=== PATIENT | female | born 1970 | race African-American/Black ===

== ENCOUNTER 2016-03-09 16:39 | Inpatient (IN) | payer MEDICARE, MEDICAID ==
[~2016-03-09] VITALS: Ht 182.9 cm; Wt 56.3 kg
[2016-03-09] MEDS ORDERED: BISACODYL 10 MG SUPP RECTAL PRN (16:50)
[2016-03-09] MEDS ORDERED: MAG HYDROX 30 ML UDC PO PRN (16:50)
[2016-03-09] MEDS ORDERED: SALINE FLUSH 10 ML FLUSH PRN (16:50)
[2016-03-09] MEDS ORDERED: ALU/MAG/SIM 30 ML UDC PO PRN (16:50)
[2016-03-09] MEDS ORDERED: ONDANSETRON 4 MG VIAL IV PRN (16:50)
[2016-03-09] MEDS ORDERED: ACETAMINOPHEN 325 MG TAB PO PRN (16:50)
[2016-03-09] MEDS ORDERED: BISACODYL EC 5 MG TAB PO PRN (16:50)
[2016-03-09] MEDS ORDERED: CYCLOBENZAPRINE 5 MG TAB PO PRN (16:55)
[2016-03-09] MEDS ORDERED: DEXTROSE 50% SYRINGE 50 ML IV PRN (16:55)
[2016-03-09] MEDS ORDERED: GLUCAGON 1 MG VIAL IM PRN (16:55)
[2016-03-09 19:36] VITALS: BP_SYST 100; BP_SYST 102; RESP 18; TEMP 97; BMI 16.4
[2016-03-09] MEDS: SALINE FLUSH 10 ML FLUSH SCH ×2 (20:00→23:28)
[2016-03-09] MEDS ORDERED: VALPROIC ACID 250 MG/5 ML UDC PO SCH (20:00)
[2016-03-09] MEDS ORDERED: **NOTE TO NURSE XX SCH (20:18)
[2016-03-09] MEDS: SODIUM CHLORIDE 0.9% 1,000 ML IV SCH (21:10)
[2016-03-09] MEDS: CEFEPIME 1,000 MG in SODIUM CHLORIDE 0.9% 100 ML IV SCH (21:10)
[2016-03-09] MEDS: SODIUM CHLORIDE 0.9% FLUSH BAG 500 ML IV SCH (21:12)
[2016-03-09 23:25] VITALS: BP_SYST 120; RESP 16; TEMP 97
[2016-03-10] MEDS ORDERED: ALU/MAG/SIM 30 ML UDC GTUBE PRN (00:50)
[2016-03-10] MEDS ORDERED: ACETAMINOPHEN 325 MG TAB GTUBE PRN (00:50)
[2016-03-10 03:25] VITALS: BP_SYST 102; RESP 20; TEMP 97
[2016-03-10 07:45] VITALS: BP_SYST 104; RESP 20; TEMP 97.7
[2016-03-10] MEDS ORDERED: PREDNISONE 20 MG TAB PO SCH (09:00)
[2016-03-10] MEDS ORDERED: BISACODYL EC 5 MG TAB PO PRN (09:00)
[2016-03-10] MEDS: PREDNISONE 20 MG TAB GTUBE SCH ×2 (09:00→09:51)
[2016-03-10] MEDS ORDERED: PHENYTOIN 100 MG CAP PO SCH (09:00)
[2016-03-10] MEDS ORDERED: GLATIRAMER ACETATE 20 MG SUBQ SCH (09:00)
[2016-03-10] MEDS: ACETIC ACID 0.25% IRRIG SCH ×3 (09:00→20:12)
[2016-03-10] MEDS ORDERED: JUVEN PO SCH (09:00)
[2016-03-10] MEDS ORDERED: [UNRECOGNIZED DRUG - OTHER] SUBQ SCH (09:00)
[2016-03-10] MEDS ORDERED: MAG HYDROX 30 ML UDC GTUBE PRN (09:00)
[2016-03-10] MEDS ORDERED: MISSING DOSE XX ONE (09:35)
[2016-03-10] MEDS: PHENYTOIN 25 MG/ML SUSP GTUBE SCH (09:49)
[2016-03-10] MEDS: VALPROIC ACID 250 MG/5 ML UDC GTUBE SCH ×2 (09:49→23:33)
[2016-03-10] MEDS: CYCLOBENZAPRINE 5 MG TAB GTUBE PRN (09:50)
[2016-03-10] MEDS: SODIUM CHLORIDE 0.9% 1,000 ML IV SCH (11:09)
[2016-03-10] MEDS: CEFEPIME 1,000 MG in SODIUM CHLORIDE 0.9% 100 ML IV SCH ×2 (11:09→20:52)
[2016-03-10 13:30] VITALS: BP_SYST 104; RESP 20; TEMP 97.6
[2016-03-10] MEDS ORDERED: *PINK BRACELET XX ONE (16:55)
[2016-03-10 17:02] VITALS: BP_SYST 118; RESP 20; TEMP 97.6
[2016-03-10] MEDS: SALINE FLUSH 10 ML FLUSH SCH (20:00)
[2016-03-10] MEDS ORDERED: [UNRECOGNIZED DRUG - REMARK] XX SCH (20:00)
[2016-03-10] MEDS: *HOME MEDS IN MED CART XX SCH (20:00)
[2016-03-10 21:34] VITALS: BP_SYST 124; RESP 18; TEMP 97.8
[2016-03-10] MEDS: LEVETIRACETAM 500 MG/5 ML GTUBE SCH (23:33)
[2016-03-10] MEDS: LORAZEPAM 0.5 MG TAB GTUBE PRN (23:36)
[2016-03-10] MEDS: GLATIRAMER SUBQ SCH (23:41)
[2016-03-11] VITALS (7 sets, daily range): BP systolic 110–122; RESP 16–20; TEMP 97.4–101.1; Ht 182.9 cm; Wt 56.3 kg
[2016-03-11] MEDS: SODIUM CHLORIDE 0.9% FLUSH BAG 500 ML IV SCH (04:49)
[2016-03-11] MEDS: VALPROIC ACID 250 MG/5 ML UDC GTUBE SCH ×3 (08:00→20:39)
[2016-03-11] MEDS: ACETIC ACID 0.25% IRRIG SCH ×2 (09:00→20:38)
[2016-03-11] MEDS ORDERED: ENOXAPARIN 30 MG/0.3 ML SYR SUBQ SCH (09:00)
[2016-03-11] MEDS: CEFEPIME 1,000 MG in SODIUM CHLORIDE 0.9% 100 ML IV SCH ×2 (09:41→20:35)
[2016-03-11] MEDS: SODIUM CHLORIDE 0.9% 1,000 ML IV SCH ×2 (09:42→20:34)
[2016-03-11] MEDS: LEVETIRACETAM 500 MG/5 ML GTUBE SCH ×2 (09:46→20:40)
[2016-03-11] MEDS: *HOME MEDS IN MED CART XX SCH ×2 (09:48→19:31)
[2016-03-11] MEDS: LORAZEPAM 0.5 MG TAB GTUBE PRN (09:48)
[2016-03-11] MEDS: PREDNISONE 50 MG TAB GTUBE SCH (09:48)
[2016-03-11] MEDS: SALINE FLUSH 10 ML FLUSH SCH ×2 (09:50→19:32)
[2016-03-11] MEDS: PHENYTOIN 25 MG/ML SUSP GTUBE SCH ×2 (09:51→20:39)
[2016-03-11] MEDS ORDERED: VALPROIC ACID 250 MG/5 ML UDC GTUBE SCH (10:18)
[2016-03-11] MEDS: LORAZEPAM 0.5 MG TAB PO SCH (16:14)
[2016-03-11] MEDS: GLATIRAMER SUBQ SCH (20:35)
[2016-03-11] MEDS: CYCLOBENZAPRINE 5 MG TAB GTUBE PRN (20:53)
[2016-03-12 03:10] VITALS: BP_SYST 126; RESP 16; TEMP 97.4
[2016-03-12] MEDS: SODIUM CHLORIDE 0.9% FLUSH BAG 500 ML IV SCH ×2 (05:43)
[2016-03-12] MEDS: SODIUM CHLORIDE 0.9% 1,000 ML IV SCH ×2 (07:13→17:46)
[2016-03-12] MEDS: CEFEPIME 1,000 MG in SODIUM CHLORIDE 0.9% 100 ML IV SCH ×2 (07:50→20:58)
[2016-03-12] MEDS: VALPROIC ACID 250 MG/5 ML UDC GTUBE SCH ×2 (07:53→21:00)
[2016-03-12] MEDS: SALINE FLUSH 10 ML FLUSH SCH ×2 (07:54→20:00)
[2016-03-12 07:57] VITALS: BP_SYST 130; RESP 18; TEMP 97.3
[2016-03-12] MEDS: *HOME MEDS IN MED CART XX SCH ×2 (08:00→20:00)
[2016-03-12] MEDS: CYCLOBENZAPRINE 5 MG TAB GTUBE PRN (08:31)
[2016-03-12] MEDS: PREDNISONE 50 MG TAB GTUBE SCH (08:31)
[2016-03-12] MEDS: PHENYTOIN 25 MG/ML SUSP GTUBE SCH ×2 (08:32→21:00)
[2016-03-12] MEDS: LEVETIRACETAM 500 MG/5 ML GTUBE SCH ×2 (08:33→21:01)
[2016-03-12] MEDS: ACETIC ACID 0.25% IRRIG SCH ×2 (09:00→21:00)
[2016-03-12] MEDS: LORAZEPAM 0.5 MG TAB GTUBE PRN (09:44)
[2016-03-12 11:58] VITALS: BP_SYST 126; RESP 18; TEMP 97.4
[2016-03-12 15:20] VITALS: BP_SYST 128; RESP 18; TEMP 98.1
[2016-03-12] MEDS: LORAZEPAM 0.5 MG TAB PO SCH (17:08)
[2016-03-12 19:43] VITALS: BP_SYST 100; RESP 18; TEMP 97.1
[2016-03-12] MEDS: GLATIRAMER SUBQ SCH (20:59)
[2016-03-12] MEDS: PHENYTOIN 100 MG CAP GTUBE SCH (21:35)
[2016-03-12] MEDS: CYCLOBENZAPRINE 5 MG TAB GTUBE SCH (22:14)
[2016-03-12 23:45] VITALS: BP_SYST 112; RESP 20; TEMP 97.8
[2016-03-13 03:40] VITALS: BP_SYST 110; RESP 18; TEMP 97
[2016-03-13] MEDS: SODIUM CHLORIDE 0.9% 1,000 ML IV SCH ×2 (04:22→15:14)
[2016-03-13] MEDS: SODIUM CHLORIDE 0.9% FLUSH BAG 500 ML IV SCH ×2 (05:01→05:02)
[2016-03-13 07:50] VITALS: BP_SYST 112; RESP 18; TEMP 97
[2016-03-13] MEDS: *HOME MEDS IN MED CART XX SCH ×2 (08:00→19:40)
[2016-03-13] MEDS: CYCLOBENZAPRINE 5 MG TAB GTUBE SCH ×3 (08:46→23:01)
[2016-03-13] MEDS: PHENYTOIN 100 MG CAP GTUBE SCH ×2 (08:46→21:02)
[2016-03-13] MEDS: PREDNISONE 50 MG TAB GTUBE SCH (08:46)
[2016-03-13] MEDS: VALPROIC ACID 250 MG/5 ML UDC GTUBE SCH ×2 (08:47→21:01)
[2016-03-13] MEDS: LEVETIRACETAM 500 MG/5 ML GTUBE SCH ×2 (08:49→21:00)
[2016-03-13] MEDS: SALINE FLUSH 10 ML FLUSH SCH ×2 (08:54→20:00)
[2016-03-13] MEDS: CEFEPIME 1,000 MG in SODIUM CHLORIDE 0.9% 100 ML IV SCH ×2 (08:56→21:03)
[2016-03-13] MEDS: ACETIC ACID 0.25% IRRIG SCH ×2 (09:00→21:00)
[2016-03-13 11:39] VITALS: BP_SYST 110; RESP 18; TEMP 97.1
[2016-03-13] MEDS: LORAZEPAM 0.5 MG TAB GTUBE PRN (11:48)
[2016-03-13 15:00] VITALS: BP_SYST 126; RESP 18; TEMP 97
[2016-03-13] MEDS: LORAZEPAM 0.5 MG TAB PO SCH (16:20)
[2016-03-13 18:51] VITALS: BP_SYST 122; RESP 18; TEMP 97
[2016-03-13] MEDS: GLATIRAMER SUBQ SCH (21:03)
[2016-03-13 23:52] VITALS: BP_SYST 118; RESP 18; TEMP 97.3
[2016-03-14 04:16] VITALS: BP_SYST 124; RESP 18; TEMP 98.6
[2016-03-14] MEDS: SODIUM CHLORIDE 0.9% 1,000 ML IV SCH ×3 (04:42→23:12)
[2016-03-14] MEDS: SODIUM CHLORIDE 0.9% FLUSH BAG 500 ML IV SCH ×2 (04:43)
[2016-03-14] MEDS: CYCLOBENZAPRINE 5 MG TAB GTUBE SCH ×3 (05:18→21:10)
[2016-03-14] MEDS: SALINE FLUSH 10 ML FLUSH SCH ×2 (08:00→20:00)
[2016-03-14] MEDS: *HOME MEDS IN MED CART XX SCH ×2 (08:00→19:32)
[2016-03-14] MEDS: ACETIC ACID 0.25% IRRIG SCH ×2 (09:00→21:00)
[2016-03-14 09:32] VITALS: BP_SYST 124; RESP 18; TEMP 96.3
[2016-03-14] MEDS: VALPROIC ACID 250 MG/5 ML UDC GTUBE SCH ×2 (09:34→21:08)
[2016-03-14] MEDS: LEVETIRACETAM 500 MG/5 ML GTUBE SCH ×2 (09:35→21:08)
[2016-03-14] MEDS: CEFEPIME 1,000 MG in SODIUM CHLORIDE 0.9% 100 ML IV SCH ×2 (09:35→21:09)
[2016-03-14] MEDS: PREDNISONE 50 MG TAB GTUBE SCH (09:36)
[2016-03-14] MEDS: PHENYTOIN 100 MG CAP GTUBE SCH ×2 (09:37→21:07)
[2016-03-14 11:15] VITALS: BP_SYST 124; RESP 17; TEMP 97.2
[2016-03-14 14:05] VITALS: BP_SYST 134; RESP 18; TEMP 96.4
[2016-03-14] MEDS: LORAZEPAM 0.5 MG TAB PO SCH (16:36)
[2016-03-14 19:33] VITALS: BP_SYST 120; RESP 18; TEMP 97
[2016-03-14] MEDS: GLATIRAMER SUBQ SCH (21:08)
[2016-03-14 23:10] VITALS: BP_SYST 120; RESP 18; TEMP 97
[2016-03-14] MEDS ORDERED: KCL CR 20 MEQ TAB PO ONE (23:10)
[2016-03-14] MEDS: LORAZEPAM 0.5 MG TAB GTUBE PRN (23:53)
[2016-03-15] MEDS: LORAZEPAM 0.5 MG TAB GTUBE PRN ×2 (01:41→11:21)
[2016-03-15 03:24] VITALS: BP_SYST 122; RESP 18; TEMP 97
[2016-03-15] MEDS: SODIUM CHLORIDE 0.9% FLUSH BAG 500 ML IV SCH ×2 (06:00)
[2016-03-15] MEDS: CYCLOBENZAPRINE 5 MG TAB GTUBE SCH ×2 (06:02→15:37)
[2016-03-15] MEDS: SALINE FLUSH 10 ML FLUSH SCH (07:28)
[2016-03-15] MEDS: *HOME MEDS IN MED CART XX SCH (07:29)
[2016-03-15] MEDS ORDERED: MISSING DOSE XX ONE (07:50)
[2016-03-15 08:09] VITALS: BP_SYST 122; RESP 18; TEMP 95.8
[2016-03-15] MEDS: LEVETIRACETAM 500 MG/5 ML GTUBE SCH (08:55)
[2016-03-15] MEDS: VALPROIC ACID 250 MG/5 ML UDC GTUBE SCH (08:55)
[2016-03-15] MEDS: PREDNISONE 50 MG TAB GTUBE SCH (08:55)
[2016-03-15] MEDS: PHENYTOIN 100 MG CAP GTUBE SCH (08:55)
[2016-03-15] MEDS: CEFEPIME 1,000 MG in SODIUM CHLORIDE 0.9% 100 ML IV SCH (08:55)
[2016-03-15] MEDS: ACETIC ACID 0.25% IRRIG SCH (08:56)
[2016-03-15 12:14] VITALS: BP_SYST 128; RESP 16; TEMP 96.5
[2016-03-15 15:52] VITALS: BP_SYST 110; RESP 18; TEMP 95.7
[2016-03-15] MEDS: LORAZEPAM 0.5 MG TAB PO SCH (16:44)
[2016-03-15 17:00] VITALS: BP_SYST 110; RESP 18; TEMP 95.7
== END 2016-03-15 18:54 | disposition home or self-care (01) | DRG 698 ==
LOC: ENRESERVTM → ENRESERVDT → 3NT 19:35 → ENPENDDIS 19:35
PROVIDERS: ADMIT Internal Medicine; ATTEND Internal Medicine
CPT/HCPCS: 80053; 82947; 85025; 94799; 99222; 99232; 99239